=== PATIENT | female | born 1970 | race Caucasian/White ===

== ENCOUNTER 2021-05-11 16:47 | Emergency (ER) | payer BC ==
[2021-05-11 17:40] VITALS: BP 147/100; PULSE 83
[2021-05-11 20:54] LABS: CORONAVIRUS COVID-19 NAA NEGATIVE (NEGATIVE)
== END 2021-05-11 21:21 | disposition home or self-care (01) ==
LOC: JD.ED 16:47
DX: R53.1 Weakness (principal); R11.0 Nausea; Z88.5 Allergy status to narcotic agent; Z20.822 Contact with and (suspected) exposure to COVID-19
CPT/HCPCS: 0241U; 36415; 71045; 80053; 84484; 85025; 93005; 99284; 93010